=== PATIENT | female | born 2000 | race Caucasian/White ===

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

== ENCOUNTER 2019-03-27 15:59 | Outpatient (CLI) | payer OTHER ==
[2019-03-27 16:47] LABS: BASOPHILS % (AUTO) 0.5 % (0-1); EOSINOPHILS % (AUTO) 0.5 % (0-6); HEMATOCRIT 40.1 % (35.0-45.0); HEMOGLOBIN 13.7 g/dl (12.0-16.0); LYMPHOCYTES # (AUTO) 1.8 X10'3 (1.1-4.8); MEAN CORPUSCULAR HEMOGLOBIN 30.3 PG (27.0-31.0); MEAN CORPUSCULAR HGB CONC 34.2 g/dL (33.0-36.5); MEAN CORPUSCULAR VOLUME 88.7 FL (78-98); MONOCYTES # (AUTO) 0.6 X10'3 (0-0.9); MONOCYTES % (AUTO) 8.5 % (2-12); NEUTROPHILS # (AUTO) 4.3 X10'3 (1.8-7.7); NEUTROPHILS % (AUTO) 63.5 % (42-75); PLATELET COUNT 249 X10'3 (140-440); RED BLOOD COUNT 4.52 X10'6 (4.20-5.60); WHITE BLOOD COUNT 6.7 X10'3 (4.5-11.0)
[2019-03-27 17:01] LABS: ALANINE AMINOTRANSFERASE 36 U/L (12-78); ALBUMIN 4.1 G/DL (3.4-5.0); ALBUMIN/GLOBULIN RATIO 1.1 (1.1-1.5); ALKALINE PHOSPHATASE 58 IU/L (20-180); ANION GAP 10 (8-16); ASPARTATE AMINO TRANSFERASE 24 U/L (10-37); BILIRUBIN,TOTAL 0.3 MG/DL (0.1-1.0); BLOOD UREA NITROGEN 14 MG/DL (7-18); BUN/CREATININE RATIO 16.5 (6.6-38.0); CHLORIDE 106 MMOL/L (99-107); CREATININE 0.85 MG/DL (0.40-0.90); GLUCOSE 102 MG/DL (70-104); POTASSIUM 3.6 MMOL/L (3.5-5.1); SODIUM 142 MMOL/L (135-145); TOTAL CARBON DIOXIDE 25.7 MMOL/L (24-32); TOTAL PROTEIN 7.8 G/DL (6.4-8.2); eGFR 86 ML/MIN
[2019-03-29 07:04] LABS: MUMPS ANTIBODIES, IGG 78.2 AU/mL (Immune >10.9); RUBEOLA ANTIBODIES, IGG >300.0 AU/mL (Immune >16.4); VARICELLA-ZOSTER VIRUS AB, IGG 1054 index (Immune >165)
== END 2019-03-27 23:59 | disposition home or self-care (01) ==
LOC: LAB 15:59
PROVIDERS: ATTEND Specialist
DX: Z00.00 Encounter for general adult medical examination without abnormal findings (principal)
CPT/HCPCS: 36415; 80053; 84443; 85025; 86706; 86735; 86762; 86765

== ENCOUNTER → 2020-10-29 | Outpatient (CLI) | payer BC ==
[2020-10-29 10:44] LABS: BASOPHILS % (AUTO) 0.8 % (0-1); EOSINOPHILS # (AUTO) 0.1 X10'3 (0-0.9); EOSINOPHILS % (AUTO) 1.7 % (0-6); HEMATOCRIT 44.8 % (35.0-45.0); LYMPHOCYTES # (AUTO) 2.4 X10'3 (1.1-4.8); LYMPHOCYTES % (AUTO) 39.1 % (21-51); MEAN CORPUSCULAR HEMOGLOBIN 30.8 PG (27.0-31.0); MEAN CORPUSCULAR HGB CONC 33.5 g/dL (33.0-36.5); MEAN CORPUSCULAR VOLUME 91.9 FL (78-98); MONOCYTES # (AUTO) 0.5 X10'3 (0-0.9); MONOCYTES % (AUTO) 7.5 % (2-12); NEUTROPHILS # (AUTO) 3.1 X10'3 (1.8-7.7); NEUTROPHILS % (AUTO) 50.9 % (42-75); PLATELET COUNT 283 X10'3 (140-440); RED BLOOD COUNT 4.87 X10'6 (4.20-5.60); RED CELL DISTRIBUTION WIDTH 13.1 % (11.5-14.5); WHITE BLOOD COUNT 6.2 X10'3 (4.5-11.0)
[2020-10-29 10:52] LABS: CLARITY,URINE CLEAR (Clear); COLOR,URINE YELLOW (Yellow); GLUCOSE, URINE NEGATIVE (Neg); KETONES,URINE NEGATIVE (Neg); LEUKOCYTE ESTERASE ,URINE NEGATIVE (Neg); NITRITES, URINE NEGATIVE (Neg); OCCULT BLOOD,URINE TRACE-INTACT (Neg); PROTEIN,URINE NEGATIVE (Neg); UROBILINOGEN,URINE 0.2 E.U/dL (0.2-1.0)
[2020-10-29 10:55] LABS: UA COLLECTION TYPE CLN CATCH MIDSTREAM
[2020-10-29 10:58] LABS: BACTERIA,URINE NONE SEEN /HPF (Neg); MUCUS STRANDS NONE SEEN /LPF (Neg); RBC,URINE 0-2 /HPF (0-2); SQUAMOUS EPITHELIAL CELL,UR FEW /LPF (FEW); WBC,URINE NONE SEEN /HPF (0-4)
[2020-10-29 11:07] LABS: ALANINE AMINOTRANSFERASE 22 U/L (12-78); ALBUMIN 4.2 G/DL (3.4-5.0); ALBUMIN/GLOBULIN RATIO 1.1 (1.1-1.5); ALKALINE PHOSPHATASE 46 IU/L (20-180); ANION GAP 11 (8-16); ASPARTATE AMINO TRANSFERASE 25 U/L (10-37); BILIRUBIN,TOTAL 0.6 MG/DL (0.1-1.0); BLOOD UREA NITROGEN 12 MG/DL (7-18); BUN/CREATININE RATIO 14.8 (6.6-38.0); CALCIUM 8.9 MG/DL (8.5-10.1); CHLORIDE 104 MMOL/L (99-107); CHOL/HDL RATIO 1.9 (0.00-4.99); CHOLESTEROL 188 MG/DL (0-200); CREATININE 0.81 MG/DL (0.40-0.90); GLUCOSE 79 MG/DL (70-104); HDL CHOLESTEROL 99 MG/DL (35-60); LDL CHOLESTEROL 75 MG/DL (50-100); POTASSIUM 3.6 MMOL/L (3.5-5.1); SODIUM 142 MMOL/L (135-145); TOTAL CARBON DIOXIDE 27.4 MMOL/L (24-32); TRIGLYCERIDES 61 MG/DL (20-135); eGFR 90 ML/MIN
== END | disposition home or self-care (01) ==
LOC: LAB 09:53
PROVIDERS: ATTEND Family Medicine
DX: Z00.00 Encounter for general adult medical examination without abnormal findings (principal)
CPT/HCPCS: 36415; 80053; 80061; 81001; 84439; 84443; 85025

== ENCOUNTER 2023-06-09 14:01 | Emergency (ER) | payer BC ==
[~2023-06-09] VITALS: Ht 165.1 cm; Wt 59.1 kg
[2023-06-09 14:06] VITALS: BP 137/72; PULSE 97; TEMP 98.7; O2SAT 99
[2023-06-09 14:25] VITALS: RESP 16
[2023-06-09 14:39] LABS: STREP A SCREEN POSITIVE (Neg)
[2023-06-09] MEDS ORDERED: penicillin G benzathine 1.2 million unit/2ml syringe IM ONE (14:45)
[2023-06-09] MEDS ORDERED: PRED20TA PO (14:51)
[2023-06-09] MEDS ORDERED: AMOX500C2 PO (14:51)
[2023-06-09] MEDS ORDERED: CefTRIAXone 1000mg IM Kit (w/lidocaine diluent) IM ONE (14:55)
== END 2023-06-09 15:03 | disposition home or self-care (01) ==
LOC: ER 14:02
DX: J02.0 Streptococcal pharyngitis (principal); B95.0 Streptococcus, group A, as the cause of diseases classified elsewhere; Z79.899 Other long term (current) drug therapy
CPT/HCPCS: 87880; 96372; 99283; J0696